=== PATIENT | male | born 1980 | race Caucasian/White ===

== ENCOUNTER 2024-02-07 05:21 | Day surgery (SDC) | payer OTHER ==
[~2024-02-07] VITALS: Ht 170.2 cm; Wt 56.8 kg
[~2024-02-07 05:21] MED LIST: BALANCED SALT 15 ML OPHTHALMIC IRRIG.SOLN OD ONE; CYCLOPENTOLATE HCL 1% 2 ML OPHTHALMIC SOLUTION ONE; EPINEPHrine 1:1,000 [1 MG/ML] VIAL IM ONE; KETOROLAC TROMETHAMINE 0.5% 5 ML OPHTHALMIC SOLUTION ONE; LIDOCAINE/PF 1% 2 ML VIAL IM ONE; MOXIFLOXACIN HCL 0.5% 3 ML OPHTHALMIC SOLUTION ONE; PHENYLEPHRINE HCL 2.5% 2 ML OPHTHALMIC SOLUTION ONE; POVIDONE-IODINE 5% 30 ML OPHTHALMIC SOLUTION OD ONE; PROPARACAINE HCL 0.5% 15 ML OPHTHALMIC SOLUTION ONE; PrednisoLONE ACETATE 1% 5 ML OPHTHALMIC SUSPENSION OD ONE; RINGERS SOLUTION,LACTATED 500 ML IV ONE; TETRACAINE HCL/PF 0.5% 4 ML OPHTHALMIC SOLUTION OD ONE; TETRACAINE HCL/PF 0.5% 4 ML OPHTHALMIC SOLUTION ONE; TROPICAMIDE 1% 2 ML OPHTHALMIC SOLUTION ONE
[2024-02-07] MEDS: RINGERS SOLUTION,LACTATED 500 ML IV ONE (05:53)
[2024-02-07] MEDS: PROPARACAINE HCL 0.5% 15 ML OPHTHALMIC SOLUTION OD ONE (05:53)
[2024-02-07] MEDS: CYCLOPENTOLATE HCL 1% 2 ML OPHTHALMIC SOLUTION OD SCH (05:54)
[2024-02-07] MEDS: MOXIFLOXACIN HCL 0.5% 3 ML OPHTHALMIC SOLUTION OD SCH (05:54)
[2024-02-07] MEDS: TROPICAMIDE 1% 2 ML OPHTHALMIC SOLUTION OD SCH (05:55)
[2024-02-07] MEDS: PHENYLEPHRINE HCL 2.5% 2 ML OPHTHALMIC SOLUTION OD SCH (05:55)
[2024-02-07] MEDS: TETRACAINE HCL/PF 0.5% 4 ML OPHTHALMIC SOLUTION OD ONE (05:55)
[2024-02-07] MEDS: KETOROLAC TROMETHAMINE 0.5% 5 ML OPHTHALMIC SOLUTION OD SCH (05:56)
[2024-02-07] MEDS: TETRACAINE HCL/PF 0.5% 4 ML OPHTHALMIC SOLUTION OD SCH (06:02)
[2024-02-07] MEDS ORDERED: NEOMYCIN/POLYMYXIN B/DEXAMETH 3.5 GM OPHTHALMIC OINTMENT ONE (06:16)
[2024-02-07] MEDS ORDERED: PrednisoLONE ACETATE 1% 5 ML OPHTHALMIC SUSPENSION ONE (06:34)
[2024-02-07] MEDS ORDERED: BUSP15 PO (06:38)
[2024-02-07] MEDS ORDERED: OLAN15TA36 PO (06:38)
[2024-02-07] MEDS ORDERED: NIFE-78 PO (06:38)
[2024-02-07] MEDS ORDERED: ASCO500 PO (06:38)
[2024-02-07] MEDS ORDERED: TOPI25 PO (06:38)
[2024-02-07] MEDS ORDERED: DIVA-111 PO (06:38)
[2024-02-07] MEDS ORDERED: MULT-1366 PO (06:38)
[2024-02-07] MEDS ORDERED: RISP3TAB35 PO (06:38)
[2024-02-07] MEDS ORDERED: SERT-439 PO (06:38)
[2024-02-07] MEDS: BALANCED SALT 15 ML OPHTHALMIC IRRIG.SOLN ONE (09:12)
[2024-02-07] MEDS: EPINEPHrine 1:1,000 [1 MG/ML] VIAL ONE (09:12)
[2024-02-07] MEDS: LIDOCAINE/PF 1% 2 ML VIAL ONE (09:14)
[2024-02-07] MEDS: TETRACAINE HCL/PF 0.5% 4 ML OPHTHALMIC SOLUTION ONE (09:17)
[2024-02-07] MEDS: POVIDONE-IODINE 5% 30 ML OPHTHALMIC SOLUTION ONE (09:24)
[2024-02-07] MEDS ORDERED: PROPOFOL 1% 20 ML VIAL IVP ONE (12:00)
[2024-02-07] MEDS ORDERED: MIDAZOLAM HCL 2 MG/2 ML VIAL IVP ONE (12:00)
[2024-02-07] MEDS ORDERED: DEXAMETHASONE SOD PHOS 4 MG/ML VIAL IVP ONE (12:00)
[2024-02-07] MEDS ORDERED: FentaNYL CITRATE PF 100 MCG/2 ML VIAL IVP ONE (12:00)
[2024-02-07] MEDS ORDERED: LIDOCAINE/PF 2% 5 ML VIAL IM ONE (12:00)
[2024-02-07] MEDS ORDERED: ONDANSETRON HCL 4 MG/2 ML VIAL IVP ONE (12:00)
== END 2024-02-07 09:25 | disposition home or self-care (01) ==
LOC: SURGERY 05:21
PROVIDERS: ATTEND Ophthalmology
DX: H25.11 Age-related nuclear cataract, right eye (principal); I51.9 Heart disease, unspecified; F20.9 Schizophrenia, unspecified; I73.00 Raynaud's syndrome without gangrene; Z88.0 Allergy status to penicillin; Z88.1 Allergy status to other antibiotic agents; Z79.899 Other long term (current) drug therapy
CPT/HCPCS: 66982; 93005; J2704; J1100; J0171; J3010; J3490 ×2; J2250; J2405; Q9967; J7120; V2632

== ENCOUNTER 2025-07-09 05:31 | Day surgery (SDC) | payer OTHER ==
[~2025-07-09] VITALS: Ht 170.2 cm; Wt 72.7 kg
[~2025-07-09 05:31] MED LIST changes: +ASCO500 PO; -BALANCED SALT 15 ML OPHTHALMIC IRRIG.SOLN OD ONE; +BUSP15 PO; +DIVA-111 PO; -EPINEPHrine 1:1,000 [1 MG/ML] VIAL IM ONE; -LIDOCAINE/PF 1% 2 ML VIAL IM ONE; +MULT-1366 PO; +NIFE-78 PO; +OLAN15TA98 PO; -POVIDONE-IODINE 5% 30 ML OPHTHALMIC SOLUTION OD ONE; -PROPARACAINE HCL 0.5% 15 ML OPHTHALMIC SOLUTION ONE; -PrednisoLONE ACETATE 1% 5 ML OPHTHALMIC SUSPENSION OD ONE; +RISP3TAB35 PO; +SERT-439 PO; -TETRACAINE HCL/PF 0.5% 4 ML OPHTHALMIC SOLUTION OD ONE; +TOPI-257 PO; -TROPICAMIDE 1% 2 ML OPHTHALMIC SOLUTION ONE; +TROPICAMIDE 1% 3 ML OPHTHALMIC SOLUTION ONE
[2025-07-09] MEDS: KETOROLAC TROMETHAMINE 0.5% 5 ML OPHTHALMIC SOLUTION OS SCH (06:35)
[2025-07-09] MEDS: PROPARACAINE HCL 0.5% 15 ML OPHTHALMIC SOLUTION OS ONE (06:36)
[2025-07-09] MEDS: CYCLOPENTOLATE HCL 1% 2 ML OPHTHALMIC SOLUTION OS SCH (06:36)
[2025-07-09] MEDS: TROPICAMIDE 1% 3 ML OPHTHALMIC SOLUTION OS SCH (06:37)
[2025-07-09] MEDS: PHENYLEPHRINE HCL 2.5% 2 ML OPHTHALMIC SOLUTION OS SCH (06:37)
[2025-07-09] MEDS: TETRACAINE HCL/PF 0.5% 4 ML OPHTHALMIC SOLUTION OS SCH (06:38)
[2025-07-09] MEDS: MOXIFLOXACIN HCL 0.5% 3 ML OPHTHALMIC SOLUTION OS SCH (06:40)
[2025-07-09] MEDS ORDERED: TETRACAINE HCL/PF 0.5% 4 ML OPHTHALMIC SOLUTION OS ONE (07:30)
[2025-07-09] MEDS: POVIDONE-IODINE 5% 30 ML OPHTHALMIC SOLUTION ONE (07:38)
[2025-07-09] MEDS: LIDOCAINE/PF 1% 2 ML VIAL ONE (07:42)
[2025-07-09] MEDS: EPINEPHrine 1:1,000 [1 MG/ML] VIAL ONE (07:44)
[2025-07-09] MEDS: BALANCED SALT 15 ML OPHTHALMIC IRRIG.SOLN ONE (07:45)
[2025-07-09] MEDS ORDERED: POVIDONE-IODINE 5% 30 ML OPHTHALMIC SOLUTION ONE (07:47)
[2025-07-09] MEDS: NEOMYCIN/POLYMYXIN B/DEXAMETH 3.5 GM OPHTHALMIC OINTMENT ONE (08:00)
[2025-07-09] MEDS: RINGERS SOLUTION,LACTATED 500 ML IV ONE (09:11)
[2025-07-09] MEDS ORDERED: MOXIFLOXACIN HCL 0.5% 3 ML OPHTHALMIC SOLUTION ONE (09:13)
[2025-07-09] MEDS ORDERED: PROPOFOL 1% 20 ML VIAL IVP ONE (12:00)
[2025-07-09] MEDS ORDERED: DEXAMETHASONE SOD PHOS 4 MG/ML VIAL ONE (12:00)
[2025-07-09] MEDS ORDERED: LIDOCAINE/PF 2% 5 ML VIAL ONE (12:00)
[2025-07-09] MEDS ORDERED: MIDAZOLAM HCL 2 MG/2 ML VIAL ONE (12:00)
[2025-07-09] MEDS ORDERED: FentaNYL CITRATE PF 100 MCG/2 ML VIAL ONE (12:00)
[2025-07-09] MEDS ORDERED: ONDANSETRON HCL 4 MG/2 ML VIAL ONE (12:00)
[2025-07-09] MEDS ORDERED: HYALURONATE SOD 8.5MG/0.85ML 10 MG/ML SYRINGE IO ONE (16:13)
[2025-07-09] MEDS ORDERED: HYALURONATE SOD/CHONDROITIN SOD 0.5 ML VIAL IO ONE (16:13)
[2025-07-09] MEDS ORDERED: BALANCED SALT 15 ML OPHTHALMIC IRRIG.SOLN ONE (16:13)
[2025-07-10] MEDS: PrednisoLONE ACETATE 1% 5 ML OPHTHALMIC SUSPENSION ONE (07:59)
== END 2025-07-09 09:30 | disposition home or self-care (01) ==
LOC: SDS 05:31
PROVIDERS: ATTEND Ophthalmology
DX: H25.12 Age-related nuclear cataract, left eye (principal); F20.9 Schizophrenia, unspecified; Z98.41 Cataract extraction status, right eye; Z88.0 Allergy status to penicillin; Z88.1 Allergy status to other antibiotic agents; Z91.041 Radiographic dye allergy status; Z91.018 Allergy to other foods
CPT/HCPCS: 66982; 93005; J2704; J1100; J0169; J3010; J3490 ×2; J2250; J2405; J7120; V2632